=== PATIENT | male | born 1980 | race Caucasian/White ===

== ENCOUNTER → 2018-04-02 | Outpatient (CLI) | payer OTHER ==
[~2018-04-02] MED LIST: IBU800 M1 PO; PERCOCET 325 MG1 TA2 PO
== END ==
LOC: COL.RAD 10:02
DX: Z02.71 Encounter for disability determination (principal); Z96.7 Presence of other bone and tendon implants

== ENCOUNTER → 2018-08-14 | Outpatient (CLI) | payer OTHER | LOC: MHCPAIN 09:30 | DX: G89.29 Other chronic pain (principal); M79.2 Neuralgia and neuritis, unspecified; M25.562 Pain in left knee | CPT/HCPCS: G0463 ==

== ENCOUNTER → 2018-12-03 | Outpatient (REF) | LOC: ZLAB.WCH 17:57 | DX: Z01.89 Encounter for other specified special examinations (principal) ==